=== PATIENT | female | born 1965 | race Asian ===

== ENCOUNTER 2017-11-23 11:05 | Outpatient (CLI) | payer OTHER | END 2017-11-23 11:06 | disposition home or self-care (01) | LOC: BICMAMMO 11:05 | PROVIDERS: ATTEND Family Medicine | DX: Z12.31 Encounter for screening mammogram for malignant neoplasm of breast (principal); Z00.00 Encounter for general adult medical examination without abnormal findings | CPT/HCPCS: 77067 ==

== ENCOUNTER 2022-04-28 11:39 | Outpatient (CLI) | payer OTHER | END 2022-04-28 11:40 | disposition home or self-care (01) | LOC: BICMAMMO 11:39 | PROVIDERS: ATTEND Family Medicine | DX: Z12.31 Encounter for screening mammogram for malignant neoplasm of breast (principal); M25.561 Pain in right knee; M25.562 Pain in left knee; Z98.82 Breast implant status | CPT/HCPCS: 77063; 77067 ==